=== PATIENT | female | born 1995 | race Caucasian/White ===

== ENCOUNTER 2024-10-16 01:35 | Inpatient (IN) | payer OTHER ==
[~2024-10-16] VITALS: Ht 157.5 cm; Wt 58.5 kg
[2024-10-16] MEDS: ONDANSETRON 4MG ODT PO ONE (02:21)
[2024-10-16] MEDS: KETOROLAC 15MG/ML VIAL IM ONE (02:21)
[2024-10-16 02:22] LABS: CLARITY URINE CLEAR (CLEAR); COLOR URINE YELLOW (YELLOW); GLUCOSE URINE NEGATIVE (NEGATIVE); KETONES URINE TRACE (NEGATIVE); LEUKOCYTE ESTERASE URINE TRACE (NEGATIVE); NITRITE URINE NEGATIVE (NEGATIVE); OCCULT BLOOD URINE 1+ (NEGATIVE); PH URINE 7.0 (4.5-8.0); PROTEIN URINE NEGATIVE (NEGATIVE); SPECIFIC GRAVITY URINE 1.010 (1.005-1.030); UROBILINOGEN URINE 0.2 E.U./dL (0.2-1.0)
[2024-10-16 02:23] LABS: CREATININE 0.7 mg/dL (0.6-1.0); UREA NITROGEN BLOOD 10 mg/dL (9-23)
[2024-10-16 02:25] LABS: ASPARTATE AMINOTRANSFERASE 18 IU/L (<34); BILIRUBIN DIRECT 0.3 mg/dL (<=3.0); BILIRUBIN TOTAL 0.9 mg/dL (0.1-1.0); PROTEIN TOTAL 7.4 g/dL (6.0-8.3)
[2024-10-16 02:26] LABS: BASOPHILS % 0.1 % (0.0-2.0); EOSINOPHILS % 0.0 % (0.0-5.0); HEMATOCRIT. 37.5 % (36.0-48.0); HEMOGLOBIN. 13.2 g/dL (12.0-16.0); LYMPHOCYTES % 9.9 % (20.0-50.0); MEAN PLATELET VOLUME 7.1 fl (7.4-10.4); MONOCYTES % 7.5 % (2.0-8.0); NEUTROPHILS % 82.5 % (40.0-76.0); PLATELET 306 x1000/uL (130-400); RED BLOOD CELL COUNT 4.07 mill/uL (4.2-5.4); RED CELL DISTRIBUTION WIDTH 13.8 % (11.6-14.6)
[2024-10-16 02:32] LABS: HCG SCREEN NEGATIVE
[2024-10-16 02:38] LABS: SQUAMOUS EPITHELIAL CELL URINE FEW /lpf (RARE/1+)
[2024-10-16 02:39] LABS: RBC URINE 0-2 /hpf (0-2); WBC URINE 0-2 /hpf (0-2)
[2024-10-16 02:40] LABS: BACTERIA URINE TRACE
[2024-10-16] MEDS ORDERED: VANCOMYCIN 1000MG/250ML 250 ML IV SCH (02:45)
[2024-10-16] MEDS: MORPHINE SULFATE 2 MG/ML INJ (NOT FOR IM USE) IV ONE (03:48)
[2024-10-16] MEDS: VANCOMYCIN 1G PREMIX 200 ML IV SCH (03:48)
[2024-10-16 06:00] VITALS: BP 114/60; PULSE 79; RESP 18; TEMP 36.6; O2SAT 99
[2024-10-16] MEDS ORDERED: PIPERACILLIN/TAZO 3.375G/50ML 50 ML IV SCH (06:00)
[2024-10-16] MEDS ORDERED: CLONIDINE 0.1MG TABLET PO PRN (06:30)
[2024-10-16] MEDS ORDERED: ACETAMINOPHEN 325MG TABLET PO PRN (06:30)
[2024-10-16] MEDS ORDERED: MAGNESIUM/ALUMINUM HYDROXIDE/SIMETHICONE 30ML UDC PO PRN (06:30)
[2024-10-16] MEDS ORDERED: NALOXONE HCL 0.4MG/ML VIAL IV PRN (06:45)
[2024-10-16 08:00] VITALS: BP 105/60; PULSE 94; RESP 15; TEMP 36.7; O2SAT 100
[2024-10-16 08:06] VITALS: BP 105/55; PULSE 94; RESP 20; TEMP 37.3076
[2024-10-16] MEDS: ENOXAPARIN 40MG/0.4ML SYR SUBCUT SCH (08:41)
[2024-10-16] MEDS: PANTOPRAZOLE SODIUM 40 MG/VIAL IV SCH (08:41)
[2024-10-16] MEDS: MORPHINE SULFATE 2 MG/ML INJ (NOT FOR IM USE) IV PRN (08:44)
[2024-10-16] MEDS: SODIUM CHLORIDE 0.9% 1,000 ML IV SCH (09:00)
[2024-10-16 12:00] VITALS: BP 105/69; PULSE 68; RESP 18; TEMP 36.7; O2SAT 100
[2024-10-16 13:03] LABS: *AMPHETAMINES SCREEN URINE NEGATIVE (NEGATIVE); *BARBITURATES SCREEN URINE NEGATIVE (NEGATIVE); *BENZODIAZEPINES SCREEN URINE NEGATIVE (NEGATIVE); *COCAINE SCREEN URINE NEGATIVE (NEGATIVE); METHADONE URINE SCREEN NEGATIVE (NEGATIVE); OPIATES URINE SCREEN NEGATIVE (NEGATIVE)
[2024-10-16 13:04] LABS: CANNABINOID URINE SCREEN PRESUMPTIVE POSITIVE (NEGATIVE); ECSTASY MDMA SCREEN URINE NEGATIVE (NEGATIVE); PHENCYCLIDINE URINE SCREEN NEGATIVE (NEGATIVE)
[2024-10-16] MEDS: PIPERACILLIN/TAZO 3.375G/50ML 50 ML IV SCH (14:34)
[2024-10-16] MEDS: KETOROLAC 30MG/ML VIAL IV SCH (18:44)
[2024-10-16 20:00] VITALS: BP 107/69; PULSE 74; RESP 18; TEMP 37.2; O2SAT 99
[2024-10-17] VITALS: BP 94/54; PULSE 88; RESP 17; TEMP 37.1; O2SAT 100
[2024-10-17 04:00] VITALS: BP 90/48; PULSE 106; RESP 20; TEMP 37.4; O2SAT 97
[2024-10-17 08:00] VITALS: BP 104/59; PULSE 98; RESP 20; TEMP 36.3; O2SAT 99
[2024-10-17 09:25] LABS: HEMATOCRIT. 31.4 % (36.0-48.0); HEMOGLOBIN. 10.7 g/dL (12.0-16.0); MEAN PLATELET VOLUME 7.4 fl (7.4-10.4); PLATELET 254 x1000/uL (130-400); RED BLOOD CELL COUNT 3.38 mill/uL (4.2-5.4); RED CELL DISTRIBUTION WIDTH 14.0 % (11.6-14.6)
[2024-10-17 09:37] LABS: CREATININE 0.6 mg/dL (0.6-1.0); UREA NITROGEN BLOOD 8 mg/dL (9-23)
[2024-10-17 11:05] LABS: BAND% 3.0 % (1.0-6.0); LYMPHOCYTES % MANUAL 4.0 % (20.0-60.0); MONOCYTES % MANUAL 4.0 % (2.0-8.0); NEUTROPHILS % MANUAL 89.0 % (45.0-75.0)
[2024-10-17 11:06] LABS: PLATELET ESTIMATE NORMAL
[2024-10-17 12:00] VITALS: BP 108/69; PULSE 94; RESP 20; TEMP 36.3; O2SAT 100
[2024-10-17] MEDS: DEXT 5%/0.9% NACL 1,000 ML IV SCH (15:43)
[2024-10-17 16:00] VITALS: BP 126/72; PULSE 100; RESP 20; TEMP 36.6; O2SAT 100
[2024-10-17 20:00] VITALS: BP 111/59; PULSE 101; RESP 18; TEMP 36.9; O2SAT 99
[2024-10-17] MEDS: ZOLPIDEM TARTRATE 5MG TABLET PO PRN (21:22)
[2024-10-17] MEDS ORDERED: IOHEXOL-300 100 ML BOTTLE ONE (23:17)
[2024-10-18] VITALS: BP 95/45; PULSE 108; RESP 20; TEMP 36.9; O2SAT 96
[2024-10-18 04:00] VITALS: BP 100/60; PULSE 107; RESP 20; TEMP 37.2; O2SAT 98
[2024-10-18] MEDS: SODIUM CHLORIDE 0.9% 1,000 ML IV ONE (04:12)
[2024-10-18] MEDS ORDERED: SODIUM CHLORIDE 0.9% 1,000 ML IV ONE (04:45)
[2024-10-18] MEDS: PIPERACILLIN/TAZO 3.375G/50ML 50 ML IV SCH (05:38)
[2024-10-18 06:25] LABS: CLARITY URINE CLEAR (CLEAR); COLOR URINE YELLOW (YELLOW); GLUCOSE URINE 1+ (NEGATIVE); KETONES URINE NEGATIVE (NEGATIVE); LEUKOCYTE ESTERASE URINE NEGATIVE (NEGATIVE); NITRITE URINE NEGATIVE (NEGATIVE); OCCULT BLOOD URINE 2+ (NEGATIVE); PH URINE 6.5 (4.5-8.0); PROTEIN URINE 1+ (NEGATIVE); SPECIFIC GRAVITY URINE 1.011 (1.005-1.030); UROBILINOGEN URINE 0.2 E.U./dL (0.2-1.0)
[2024-10-18 06:51] LABS: HEMATOCRIT. 29.3 % (36.0-48.0); HEMOGLOBIN. 10.1 g/dL (12.0-16.0); MEAN PLATELET VOLUME 7.5 fl (7.4-10.4); PLATELET 237 x1000/uL (130-400); RED BLOOD CELL COUNT 3.15 mill/uL (4.2-5.4); RED CELL DISTRIBUTION WIDTH 13.7 % (11.6-14.6)
[2024-10-18 07:06] LABS: CREATININE 0.6 mg/dL (0.6-1.0)
[2024-10-18 07:07] LABS: UREA NITROGEN BLOOD < 5 mg/dL (9-23)
[2024-10-18 08:00] VITALS: BP 90/39; PULSE 51; RESP 20; TEMP 37.2; O2SAT 95
[2024-10-18 08:33] LABS: SQUAMOUS EPITHELIAL CELL URINE 2+ /lpf (RARE/1+)
[2024-10-18 08:35] LABS: BACTERIA URINE TRACE
[2024-10-18 12:00] VITALS: BP 100/59; PULSE 80; RESP 18; TEMP 37.2; O2SAT 99
[2024-10-18] MEDS: KCL 20MEQ/100ML PREMIX 100 ML IV SCH (14:29)
[2024-10-18 14:53] LABS: BAND% 15.0 % (1.0-6.0); LYMPHOCYTES % MANUAL 8.0 % (20.0-60.0); MONOCYTES % MANUAL 2.0 % (2.0-8.0); NEUTROPHILS % MANUAL 75.0 % (45.0-75.0); PLATELET ESTIMATE NORMAL
[2024-10-18 16:00] VITALS: BP 111/64; PULSE 88; RESP 20; TEMP 36.6; O2SAT 100
[2024-10-18 20:00] VITALS: BP 103/60; PULSE 54; RESP 18; TEMP 36.7; O2SAT 99
[2024-10-19] VITALS: BP 104/68; PULSE 90; RESP 18; TEMP 38.5; O2SAT 99
[2024-10-19 04:00] VITALS: BP 104/18; PULSE 91; RESP 18; TEMP 36.7; O2SAT 99
[2024-10-19] MEDS: ONDANSETRON HCL 4MG/2ML INJ IV PRN (06:45)
[2024-10-19 07:36] LABS: HEMATOCRIT. 30.0 % (36.0-48.0); HEMOGLOBIN. 10.0 g/dL (12.0-16.0); MEAN PLATELET VOLUME 7.2 fl (7.4-10.4); PLATELET 262 x1000/uL (130-400); RED BLOOD CELL COUNT 3.24 mill/uL (4.2-5.4); RED CELL DISTRIBUTION WIDTH 13.9 % (11.6-14.6)
[2024-10-19 08:00] VITALS: BP 93/58; PULSE 89; RESP 20; TEMP 37.8; O2SAT 100
[2024-10-19 09:11] LABS: BAND% 14.0 % (1.0-6.0); LYMPHOCYTES % MANUAL 8.0 % (20.0-60.0); MONOCYTES % MANUAL 6.0 % (2.0-8.0); NEUTROPHILS % MANUAL 72.0 % (45.0-75.0); PLATELET ESTIMATE NORMAL
[2024-10-19 09:24] LABS: CREATININE 0.6 mg/dL (0.6-1.0); UREA NITROGEN BLOOD < 5 mg/dL (9-23)
[2024-10-19 12:00] VITALS: BP 92/45; PULSE 68; RESP 17; TEMP 36.7; O2SAT 100
[2024-10-19] MEDS: DEXT IV SCH (13:23)
[2024-10-19] MEDS: NACL IV SCH (13:23)
[2024-10-19] MEDS: POTASSIUM CHLORIDE IV SCH (13:23)
[2024-10-19] MEDS: KCL 20MEQ/100ML PREMIX 100 ML IV SCH (13:24)
[2024-10-19 16:00] VITALS: BP 105/55; PULSE 52; RESP 20; TEMP 36.6; O2SAT 100
[2024-10-19 20:00] VITALS: BP 124/67; PULSE 77; RESP 18; TEMP 38; O2SAT 100
[2024-10-20] VITALS: BP 104/62; PULSE 91; RESP 17; TEMP 37; O2SAT 100
[2024-10-20 04:00] VITALS: BP 106/63; PULSE 71; RESP 17; TEMP 37.5; O2SAT 100
[2024-10-20] MEDS: HYDROCODONE/ACETAMINOPHEN 5/325MG TABLET PO PRN (04:26)
[2024-10-20 08:00] VITALS: BP 114/90; PULSE 50; RESP 16; TEMP 36.9; O2SAT 98
[2024-10-20 10:24] VITALS: RESP 20
[2024-10-20 13:27] LABS: CREATININE 0.5 mg/dL (0.6-1.0); UREA NITROGEN BLOOD < 5 mg/dL (9-23)
[2024-10-20] MEDS ORDERED: METR-167 MT (13:29)
[2024-10-20] MEDS ORDERED: LEVO750T68 MT (13:29)
[2024-10-20 15:34] VITALS: BP 114/90; PULSE 78; TEMP 98.5; O2SAT 98
== END 2024-10-20 16:14 | disposition home or self-care (01) | DRG 872 ==
LOC: ER 01:35 → EDBEDREQTM 03:11 → EDBEDREQ 03:11 → 7EST 03:12 → EDBEDREQTM 03:13 → ENRESERV 04:58
PROVIDERS: ADMIT Internal Medicine; ATTEND Internal Medicine
DX: A41.9 Sepsis, unspecified organism (principal); K57.20 Diverticulitis of large intestine with perforation and abscess without bleeding; N39.0 Urinary tract infection, site not specified; K59.00 Constipation, unspecified; D64.9 Anemia, unspecified; E87.6 Hypokalemia; Z79.899 Other long term (current) drug therapy
CPT/HCPCS: 36415; 74176; 74177; 80048; 80076; 80305; 81003; 84145; 84443; 84703; 85025; 93970; 99285; A4606; J1650; J1885; J2270; J2405; J2470; J2543; J3373; J3480; J7030; J7042; Q0162; Q9967